=== PATIENT | male | born 1995 | race Caucasian/White ===

== ENCOUNTER 2024-11-03 15:00 | Emergency (ER) | payer BC, SELFPAY ==
[2024-11-03 15:01] VITALS: BP 133/94; PULSE 96; RESP 16; TEMP 36.6; O2SAT 96; BMI 30.4
--- NOTE | 2024-11-03 16:09 | CT_ITS ---
PROCEDURE: CT ABDOMEN/PELVIS WITHOUT CONTRAST 11/03/2024 REASON FOR EXAM: KIDNEY STONE TECHNIQUE: Procedure Code: CTABDPEL Modality: CT Procedure: ABDOMEN/PELVIS WITHOUT CONT Noncontrast technique limits evaluation of the abdominal and pelvic viscera. Coronal and Sagittal reconstruction series were provided. One or more dose reduction techniques were used (e.g., Automated exposure control, adjustment of the mA and/or kV according to patient size, use of iterative reconstruction technique). RADIATION DOSE SUMMARY: CTDlvol: 7.16 mGy DLP: 400.98 mGycm COMPARISON: None. FINDINGS: Lung bases: Clear. Liver: Unremarkable. Gallbladder: Unremarkable. Spleen: Unremarkable. Pancreas: Unremarkable. Adrenals: Unremarkable. Kidneys: Unremarkable. No urolithiasis, hydroureteronephrosis, or perinephric edema. Bladder: Unremarkable. No bladder calculus is seen. Reproductive Organs: Unremarkable. Nonenlarged prostate. Bowel: Unremarkable. No obstruction or active inflammatory process. Normal appendix. Lymph nodes: No suspicious lymph node enlargement. Vasculature: Normal caliber abdominal aorta and IVC. Peritoneum / Retroperitoneum: No ascites or free air. Bones: No significant abnormality. CT/Abdomen/Pelvis without Cont IMPRESSION: No acute or active inflammatory intra-abdominal pathology. No urinary tract calculi or hydroureteronephrosis on either side. Reading Location: [id number]
--- NOTE | 2024-11-03 16:11 | EX.ED.DYSGE1 ---
HPI History of Present Illness Chief Complaint: Flank Pain Detail of Chief Complaint: Abrupt onset of right flank pain hours prior to presentation Informant: patient and spouse/S.O. Onset/Context/Timing Onset: Today and Hours Context: Sudden Onset Timing: Continuous and Waxes and wanes Quality: Pain Location: Right flank that radiates anterior Current Severity: Mild Maximum Severity: Severe Worsened by: Slightly increased if he bends to the right Relieved by: Nothing Associated Symptoms Associated Symptoms: Near syncope due to the severity of the pain and nausea Narrative Narrative: Patient is a 28-year-old male. He was outside walking when he developed abrupt onset of right flank pain that radiated anteriorly with nausea and near syncope due to the abrupt onset. Patient states the pain has diminished in its intensity significantly. He has no known history of renal or ureterolithiasis. He states has had pain similar to this in the remote past. He never had it evaluated. He denies history of VTE. He denies leg pain, swelling or discoloration. He has no risk factors for VTE. He denies pain with breathing. He denies dyspnea or dyspnea on exertion. Patient denies intolerance to greasy or fried foods. He did have a chicken fillet at 11:30 AM. He has no known history of cholelithiasis. He has no known history of peptic ulcer disease. Prior similar symptoms: No Recent Illness/Hospitalization: No PFSH PFSH Medical History (Updated 11/03/24 @ 19:[address] Harry Ramirez MD) Hemorrhoids Normal colonoscopy GERD (gastroesophageal reflux disease) Medical History no medical history no medical history Allergy/AdvReac Type Severity Reaction Status Date / Time No Known Allergies Allergy Verified 11/03/24 15:04 Surgical History (Updated 11/03/24 @ 16:24 by Naty Chino) H/O esophagogastroduodenoscopy Social History (Updated 11/03/24 @ 16:[address] Harry Ramirez MD) household members: spouse and children Smoking Status: Never smoker ROS ROS ED Constitutional Constitutional ED: Denies chills, fever(s), subjective or sweats Eyes Eyes: Denies blurry vision or change in vision ENT ENT ED: Denies ear pain, rhinorrhea or sore throat Cardiovascular Cardiovascular: Denies chest pain, orthopnea, palpitations, paroxysmal nocturnal dyspnea or racing heartbeat Respiratory/Chest Respiratory/Chest: Denies cough, dyspnea, dyspnea on exertion, orthopnea or paroxysmal nocturnal dyspnea Gastrointestinal Gastrointestinal: Reports abdominal pain and nausea; Denies constipation, diarrhea, melena or vomiting Genitourinary Genitourinary ED: Denies dysuria, hematuria or urinary frequency Musculoskeletal Musculoskeletal: Reports back pain and other Details: Back pain is actually right flank pain. ; Denies arthralgias, myalgias or neck pain Integumentary Denies rash Neurologic Neurologic: Denies paresthesias EXAM Physical Exam Const Vital Signs: 11/03/24 15:01 11/03/24 17:01 11/03/24 19:00 Temperature 97.9 F Temperature Source Oral Pulse Rate 96 90 88 Respiratory Rate 16 15 16 Blood Pressure 133/94 H 137/80 H 136/78 H Blood Pressure Mean 107 99 97 Pulse Ox 96 100 100 Oxygen Delivery Method Room Air Room Air 11/03/24 19:04 Temperature 97.9 F Temperature Source Pulse Rate 88 Respiratory Rate 16 Blood Pressure 136/78 H Blood Pressure Mean 97 Pulse Ox 100 Oxygen Delivery Method Positive well nourished and well developed General Appearance ED: well developed and NAD; Negative for pallor HEENT Reports moist mucous membranes HEENT Narrative: Has atraumatic normocephalic. Ears normal. Nares patent Eyes EOMs intact bilaterally General Eye ED: Negative for pale conjunctiva or scleral icterus Neck no lymphadenopathy, supple and no JVD Resp normal respiratory effort and clear to auscultation bilaterally Cardio regular rate, regular rhythm, S1 normal heart sound, S2 normal heart sound and no murmurs GI normal to inspection, nondistended, normoactive bowel sounds, non-tender, non-distended and no masses; Negative for hepatosplenomegaly Auscultation: normoactive bowel sounds Back/Spine no CVA tenderness Extremity normal to inspection Extremity Narrative: There is no asymmetry, swelling, discoloration, leg vein distention, palpable cords or tenderness along the distribution of the deep venous system. Neuro oriented x3 and CN's II-XII intact bilaterally Sensorium / Orientation: alert Psych mental status grossly normal Skin no rashes or lesions noted, no wounds and skin turgor normal General Skin Exam: Negative for jaundice or pallor MDM MDM MDM Narrative Medical decision making narrative: Patient was offered pain medicine which she declined. Patient was instructed if he develops severe pain again he can please let the nurse know and I would gladly order him pain medicine. Differential diagnosis would include flank pain of unknown etiology, obstructing proximal renal pelvic stone versus ureteral stone versus retroperitoneal pathology. This may also represent an atypical musculoskeletal back pain. His symptoms are not consistent with cholelithiasis/biliary colic. His symptoms are not consistent or suggestive of pneumonia or pulmonary embolus. Furthermore his Wells score is less than 3 and PERC score is negative. History is not consistent with aortic dissection either and he does not have history of hypertension his blood pressure only slightly elevated. Lab Data Labs: Laboratory Results - last 24 hr 11/03/24 16:19 WBC 8.5 RBC 5.03 Hgb 14.2 Hct 41.6 MCV 82.7 MCH 28.2 MCHC 34.1 RDW Std Deviation 38.3 RDW Coeff of Ori 12.8 Plt Count 252 MPV 8.5 Immature Gran % (Auto) 0.100 Neut % (Auto) 47.8 Lymph % (Auto) 39.0 Banner % (Auto) 10.7 H Eos % (Auto) 1.7 Baso % (Auto) 0.7 Absolute Neuts (auto) 4.1 Absolute Lymphs (auto) 3.31 Nucleated RBC % 0 Sodium 138 Potassium 4.0 Chloride 104 Carbon Dioxide 24.1 Anion Gap 10 BUN 16 Creatinine 1.04 Estim Creat Clear Calc 104.85 Est GFR (MDRD) Non-Af 100 BUN/Creatinine Ratio 15.6 Glucose 93 Calcium 9.8 Urine Color Yellow Urine Clarity Clear Urine pH 7.0 Ur Specific [place] 1.015 Urine Protein 15 H Urine Glucose (UA) Normal Urine Ketones Negative Urine Occult Blood Negative Urine Nitrite Negative Urine Bilirubin Negative Urine Urobilinogen Normal Ur Leukocyte Esterase Negative Urine RBC 0-5 SEEN Urine WBC 0-5 SEEN Ur Squamous Epith Cells 0 SEEN Urine Bacteria 0 SEEN Urine Mucus 0 SEEN Radiography Diagnostic Testing: Clinical Impression(s) from Imaging Studies Abdomen/Pelvis CT 11/03/24 16:09 IMPRESSION: No acute or active inflammatory intra-abdominal pathology. No urinary tract calculi or hydroureteronephrosis on either side. Reading Location: [facility] Treatment and Re-Evaluation :: Patient was informed of results. He was reexamined he does have reproducible back pain. With no history of trauma this may represent spasms. His CT was reviewed by me as negative by internal radiologist as negative. UA and blood work were normal.. Patient has no contraindication to NSAIDs. Discharge Plan Triage Chief Complaint: Flank Pain ED Provider: Harry Ramirez Dx/Rx/DC Orders Clinical Impression: Acute right flank pain, Vasovagal near syncope, Back muscle spasm, Elevated blood-pressure reading without diagnosis of hypertension Instructions: ED Hypertension, To Be Confirmed, ED Muscle Spasm Primary Care Provider: Didi Saini Referrals: Care Physician,No Primary [Non-Staff, Medical] Activity Restrictions/Additional Instructions: If you do not have a physician you may follow-up with Dr. Spence if no improvement in 3 to 5 days. Apply ice to your back 6-8 times a day. If you have ibuprofen 4 tablets every 8 hours for the next 3 to 5 days. If you have Aleve 2 tablets every 12 hours for next 3 to 5 days. Your blood pressure is elevated. You should have this rechecked in 1 to 2 weeks. Print Language: Tu[place] Disposition Disposition: Home, Self Care
[2024-11-03 16:25] LABS: Mucous, Urine 0 SEEN /hpf (<or=2+)
[2024-11-03 16:26] LABS: Hematocrit 41.6 % (40-54); Hemoglobin 14.2 g/dL (13.0-16.5); Immature Granulocytes Count 0.010 X10^3/uL (0.0-0.0); Mean Corp Hgb Conc 34.1 g/dL (32-36); Mean Corpuscular Volume 82.7 fL (80-94); Mean Platelet Vol. 8.5 fl (6.2-12.0); NRBC Flagged by Analyzer 0 % (0-5); Platelet Count 252 K/mm3 (150-450); RBC Distribution Width CV 12.8 % (11.6-14.6); RBC Distribution Width SD 38.3 fl (35.1-43.9); Red Blood Count 5.03 M/mm3 (4.6-6.2); White Blood Count 8.5 K/mm3 (4.4-11.0)
[2024-11-03 16:29] LABS: Color, Urine Yellow (Yellow); Glucose, Dipstick Normal (Normal); Ketone-Dipstick Negative (Negative); Leukocyte Esterase-Dipstick Negative /ul (Negative); Nitrite-Dipstick Negative (Negative); Occult Blood-Urine Negative /ul (Negative); Protein-Dipstick 15 mg/dl (Negative); Specific Gravity, Urine 1.015 (1.002-1.030); Urine Bilirubin Dipstick Negative (Negative)
[2024-11-03 16:35] LABS: Red Blood Cells-Urine 0-5 SEEN /hpf (0-5); Squamous Epithelial Cells - UA 0 SEEN /hpf (0-5)
[2024-11-03 16:52] LABS: Anion Gap 10 (5-15); BUN 16 mg/dL (4-19); BUN/Creat Ratio 15.6 RATIO (10-20); Calcium,Total 9.8 mg/dL (7.6-11.0); Carbon Dioxide 24.1 mmol/L (21.0-32.0); Chloride 104 mmol/L (98-108); Estimated Creatinine Clearance 104.85 ml/min (50-250); Glucose 93 mg/dL (70-99); Potassium 4.0 mmol/L (3.3-5.1)
[2024-11-03 17:01] VITALS: BP 137/80; PULSE 90; RESP 15; O2SAT 100
[2024-11-03 19:00] VITALS: BP 136/78; PULSE 88; RESP 16; O2SAT 100
[2024-11-03 19:04] VITALS: BP 136/78; PULSE 88; RESP 16; TEMP 36.6; O2SAT 100
== END 2024-11-03 19:17 | disposition home or self-care (01) ==
PROVIDERS: Emergency Provider Emergency Medicine; PCP Nurse Practitioner Family; Visit Provider Emergency Medicine
DX: R10.9 Unspecified abdominal pain (principal); M62.830 Muscle spasm of back; R03.0 Elevated blood-pressure reading, without diagnosis of hypertension; K21.9 Gastro-esophageal reflux disease without esophagitis; R42 Dizziness and giddiness
CPT/HCPCS: 74176; 80048; 81001; 85025; 99284; A4216